=== PATIENT | male | born 1980 | race Caucasian/White ===

== ENCOUNTER → 2021-11-22 17:04 | Outpatient (CLI) | payer OTHER, SELFPAY ==
--- NOTE | ~2021-11-22 | XR_ITS ---
EXAM: XR elbow RT min 3V DATE: 11/22/2021 17:50 HISTORY: Right elbow pain . COMPARISON: None available. FINDINGS: Normal mineralization. No fracture or dislocation. No lytic or blastic lesion. Joint space s are maintained. No erosion or periosteal change. Soft tissues within normal limits. IMPRESSION: No acute osseous finding in the right elbow. Reviewed, dictated and finalized at location K.
== END ==
PROVIDERS: PCP Family Medicine; Visit Provider Chiropractor Rehabilitation
DX: M25.521 Pain in right elbow (principal)
CPT/HCPCS: 73080